=== PATIENT | male | born 1965 | race Caucasian/White ===

== ENCOUNTER 2017-05-04 07:56 | Emergency (ER) | payer MEDICAID ==
[~2017-05-04] VITALS: Ht 175.3 cm; Wt 81.6 kg
[2017-05-04] MEDS ORDERED: SODIUM CHLORIDE 0.9% 1,000 ML IV ONE (08:25)
[2017-05-04] MEDS ORDERED: RANI150T8 PO (08:27)
[2017-05-04] MEDS ORDERED: LORA-446 PO (08:27)
[2017-05-04] MEDS ORDERED: SODIUM CHLORIDE FLUSH 10ML SYR IVF ONE (08:30)
[2017-05-04] MEDS ORDERED: FAMOTIDINE 20 MG/2 ML IVP ONE (08:30)
[2017-05-04] MEDS ORDERED: LORazepam 2 MG/ML, 1ML IVPush ONE (08:30)
[2017-05-04] MEDS ORDERED: ONDANSETRON 2MG/ML, 2ML IVPush ONE (08:30)
[2017-05-04] MEDS ORDERED: MAALOX/HYOSCYAMINE/LIDOCAINE 45 ML BTL PO ONE (08:30)
[2017-05-04] MEDS ORDERED: ONDANSETRON 2MG/ML, 2ML ONE (08:30)
[2017-05-04] MEDS ORDERED: SODIUM CHLORIDE 0.9% 1,000ML IVBOLUS ONE (08:30)
[2017-05-04] MEDS ORDERED: LORazepam 2 MG/ML, 1ML ONE (08:31)
[2017-05-04] MEDS ORDERED: FAMOTIDINE 20 MG/2 ML ONE (08:31)
[2017-05-04 08:52] LABS: HEMATOCRIT 45.2 % (39.2-51.8); HEMOGLOBIN 15.4 g/dL (13.7-18.0); WHITE BLOOD COUNT 7.5 x10^3/uL (3.4-10)
[2017-05-04] MEDS ORDERED: PLEASE ENTER ALLERGIES MC SCH ×2 (09:00)
[2017-05-04 09:10] LABS: ASPARTATE AMINO TRANSFERASE 18 U/L (15-37); BLOOD UREA NITROGEN 15 mg/dL (7-18)
[2017-05-04 09:16] LABS: IS PT STATUS REG ER OR PRE ER? YES
[2017-05-04 11:02] VITALS: BP 127/73
== END 2017-05-04 11:05 | disposition home or self-care (01) ==
LOC: ED 09:22
DX: R07.89 Other chest pain (principal); R11.2 Nausea with vomiting, unspecified; F41.1 Generalized anxiety disorder
CPT/HCPCS: 36415; 74022; 80053; 83690; 84484; 85025; 93005; 96361; 96374; 96375; 99285; J2060; J2405; J7030; S0028